=== PATIENT | female | born 1990 | race Caucasian/White ===

== ENCOUNTER → 2023-03-19 15:59 | Outpatient (BNVA) | payer MEDICAID, SELFPAY | PROVIDERS: PCP Registered Nurse; Visit Provider Registered Nurse | DX: Z34.90 Encounter for supervision of normal pregnancy, unspecified, unspecified trimester (principal) | CPT/HCPCS: 81025 ==

== ENCOUNTER 2023-04-27 14:28 | Emergency (ER) | payer MEDICAID, SELFPAY ==
--- NOTE | 2023-04-27 14:56 | ED_ITS ---
Documented by User: OCHOA Blas 04/28/23 07:09 HPI - General: Chief complaint: Vaginal Bleeding Stated complaint: Spotting, Approx 10 Weeks Pregenant Time Seen by Provider: 04/27/23 14:35 History of Present Illness: Patient is a with 1 miscarriage 32-year-old female that is currently 10 weeks and comes to the ED because of vaginal bleeding. Patient describes vaginal bleeding as spotting. Her spotting has been going on now for couple weeks and she says it comes and goes and is very mild. Yesterday the spotting got just slightly heavier and was consistent throughout the day. She passed a couple dime size clots. She denies any current heavy bleeding today and says she is still having some spotting and she is not bleeding through any pads. she has some occasional mild abdominal cramping. Denies any fevers, nausea, vomiting, dysuria or hematuria. Patient sees Dr. Meneses as her OB and says she has an appointment with him which will be her first appointment for this in May. Associated symptoms: Deny abdominal pain, dysuria, headache(s), nausea or vomiting Review of Systems Const: Denies: fever(s), chills or fatigue Eyes: Denies: change in vision or eye discomfort ENMT: Denies: throat pain, odynophagia, nasal discharge or nasal congestion Card: Denies: chest pain, palpitations, edema, swelling of feet/ankles, dyspnea on exertion or orthopnea Resp: Denies: dyspnea, productive cough or non-productive cough GI: Denies: abdominal pain, nausea, vomiting, diarrhea, constipation or hematochezia : Reports: vaginal bleeding; Denies: flank pain, dysuria or hematuria Musc: Denies: neck pain, back pain or extremity swelling Skin/Breast: Denies: rash or new lesions Neuro: Denies: headache(s), numbness in extremities or weakness in extremities PFSH ED PFSH: Family History Denies family history of Diabetes CAD (coronary artery disease) Chronic kidney disease (CKD) Lung disease Cancer Hypertension Social History Smoking and tobacco status: never smoked Alcohol intake: never Substance/Drug Use: never Adopted: No Caregiver/support person: No Lives independently: No Household members: spouse and children Marital status: service: No Current occupational status: unemployed Sexually active: Yes Do you think of yourself as: Straight/Heterosexual Current gender identity: Female Physical Exam Const: COMMON NORMALS: no acute distress, patient oriented x3, healthy appearing and alert GENERAL APPEARANCE: cooperative and comfortable HENMT: COMMON NORMALS: normocephalic HEAD & SCALP: normocephalic MOUTH: Normal oral and palatal mucosa present THROAT: posterior oropharynx normal and uvula midline Neck/C-Spine: COMMON NORMALS: supple GENERAL: Yes normal visual inspection Resp: COMMON NORMALS: normal respiratory effort, No retractions, No use of accessory muscles and clear to auscultation bilaterally AUSCULTATION: clear to auscultation bilaterally Cardio: COMMON NORMALS: regular rate, regular rhythm, S1 normal heart sound present, S2 normal heart sound present, No gallops present (Cardio), No clicks present (Cardio), No murmurs present (Cardio) and Peripheral pulses 2+ throughout RATE: regular rate RHYTHM: regular rhythm HEART SOUNDS: S1 normal heart sound present and S2 normal heart sound present PERIPHERAL PULSES: Peripheral pulses 2+ throughout GI: COMMON NORMALS: Normal to inspection, nondistended, normoactive bowel sounds present, Soft to palpation, non-tender and no masses PALPATION: Yes Soft to palpation : COMMON NORMALS: Yes no CVA tenderness BLADDER/KIDNEY EXAM: Yes no CVA tenderness Back/Pelvis: COMMON NORMALS: no CVA tenderness Extremity: COMMON NORMALS: normal to inspection Neuro: COMMON NORMALS: patient oriented x3 SENSORIUM/ORIENTATION: Yes alert GAIT: Yes Normal gait present Skin: GENERAL SKIN EXAM: dry skin Course Vital Signs: Vital signs: Vital Signs Temperature 98.2 F 04/27/23 14:57 Pulse Rate 75 04/27/23 17:55 Respiratory Rate 16 04/27/23 14:57 Blood Pressure 133/81 04/27/23 17:55 Pulse Oximetry 99 04/27/23 17:55 Oxygen Delivery Me thod Room Air 04/27/23 17:01 MDM - OB/Uterine Contractions Medical Decision Making Patient is a with 1 miscarriage 32-year-old female that is currently 10 weeks and comes to the ED because of vaginal bleeding. Patient describes vaginal bleeding as spotting. Her spotting has been going on now for couple weeks and she says it comes and goes and is very mild. Yesterday the spotting got just slightly heavier and was consistent throughout the day. She passed a couple dime size clots. She denies any current heavy bleeding today and says she is still having some spotting and she is not bleeding through any pads. she has some occasional mild abdominal cramping. Denies any fevers, nausea, vomiting, dysuria or hematuria. Patient sees Dr. Meneses as her OB and says she has an appointment with him which will be her first appointment for this in May. Vitals are stable. Patient appears healthy nontoxic in no acute distress or pain. Rest of exam is benign. CBC and CMP are unremarkable. hCG quant of 108,950. Rh+, OB ultrasound showed a single live intrauterine with estimated gestation of 10 weeks and 6 days. It also noted a 3.4 cm simple right ovarian cyst. No other acute finding noted. UA is pending. Patient case was signed over to Ester Gee PA-C at shift change 5 PM. She will be taking over care of patient and dispo plan. Lab Data I reviewed the patient's lab results. 04/27/23 14:45 04/27/23 14:45 Radiology Impressions Obstetrics Ultrasound 04/27/23 15:14 IMPRESSION: 1. Single live intrauterine gestation with estimated ultrasound gestational age of 10 weeks 6 days for an TERE of 11/17/2023. 2. 3.4 cm simple right ovarian cyst. Laboratory Results WBC 10.1 10^3/uL (4.0-10.0) H 04/27/23 14:45 RBC 4.49 10^6/uL (4.1-5.3) 04/27/23 14:45 Hgb 12.1 g/dL (11.5-15.3) 04/27/23 14:45 Hct 38.2 % (37.0-47.0) 04/27/23 14:45 MCV 85.1 fl (81-99) 04/27/23 14:45 MCH 26.9 pg (28.0-34.0) L 04/27/23 14:45 MCHC 31.7 g/dL (30.0-36.0) 04/27/23 14:45 RDW 15.6 % (12.1-15.1) H 04/27/23 14:45 Plt Count 389 10^3/cmm (130-400) 04/27/23 14:45 MPV 10.4 fL (7.4-10.4) 04/27/23 14:45 Neut % (Auto) 75.3 % 04/27/23 14:45 Lymph % (Auto) 18.8 % 04/27/23 14:45 Mifflin % (Auto) 4.5 % 04/27/23 14:45 Eos % (Auto) 0.6 % 04/27/23 14:45 Baso % (Auto) 0.4 % 04/27/23 14:45 Neut # (Auto) 7.60 10^3/uL (1.8-7.7) 04/27/23 14:45 Lymph # (Auto) 1.9 10^3/uL (0.8-4.8) 04/27/23 14:45 Mifflin # (Auto) 0.5 10^3/uL (0.2-0.9) 04/27/23 14:45 Eos # (Auto) 0.1 10^3/uL (0.0-0.8) 04/27/23 14:45 Baso # (Auto) 0.0 10^3/uL (0.0-0.1) 04/27/23 14:45 Nucleated RBC % (auto) 0 % 04/27/23 14:45 Nucleated RBCs # 0.0 /100WBC 04/27/23 14:45 Sodium 135 mmol/L (136-145) L 04/27/23 14:45 Potassium 4.0 mmol/L (3.5-5.1) 04/27/23 14:45 Chloride 102 mmol/L (98-107) 04/27/23 14:45 Carbon Dioxide 23 mmol/L (22-29) 04/27/23 14:45 Anion Gap 14.0 (5-19) 04/27/23 14:45 BUN 6 mg/dL (6-20) 04/27/23 14:45 Creatinine 0.5 mg/dL (0.5-0.9) 04/27/23 14:45 GFR Calculation 141.2 mL/min (90-130) H 04/27/23 14:45 Glucose 84 mg/dL (65-115) 04/27/23 14:45 Calculated Osmolality 277 mOsm/kg (285-295) L 04/27/23 14:45 Calcium 8.8 mg/dL (8.5-10.5) 04/27/23 14:45 Total Bilirubin 0.2 mg/dL (0.15-1.2) 04/27/23 14:45 AST 12 U/L (0-32) 04/27/23 14:45 ALT 12 U/L (0-33) 04/27/23 14:45 Alkaline Phosphatase 113 U/L (35-105) H 04/27/23 14:45 Total Protein 7.4 g/dL (6.6-8.7) 04/27/23 14:45 Albumin 3.7 g/dL (3.5-5.2) 04/27/23 14:45 Globulin 3.7 g/dL (1.3-4.6) 04/27/23 14:45 Ser , Semi-Qnt 583823.00 mIU/mL 04/27/23 14:45 Urine Color Yellow (Yellow) 04/27/23 16:53 Urine Appearance Sl hazy (CLEAR) A 04/27/23 16:53 Urine pH 5 (5-7) 04/27/23 16:53 Ur Specific Axson 1.020 (1.005-1.030) 04/27/23 16:53 Urine Protein Neg (Negative) 04/27/23 16:53 Urine Glucose (UA) Norm (Normal) 04/27/23 16:53 Urine Ketones Negative (Negative) 04/27/23 16:53 Urine Blood 3+ (Negative) H 04/27/23 16:53 Urine Nitrate Negative (Negative) 04/27/23 16:53 Urine Bilirubin Neg (Negative) 04/27/23 16:53 Urine Urobilinogen Norm mg/dL (Negative) 04/27/23 16:53 Ur Leukocyte Esterase 2+ (Negative) H 04/27/23 16:53 Urine RBC 5-10 /hpf (0-2) H 04/27/23 16:53 Urine WBC 10-15 /hpf (0-5) H 04/27/23 16:53 Ur Squamous Epith Cells 5-10 /hpf (0-5) H 04/27/23 16:53 Amorphous Sediment Not Reportable 04/27/23 16:53 Urine Bacteria 2+ /hpf (NONE) H 04/27/23 16:53 Urine Mucus 2+ /hpf 04/27/23 16:53 Blood Type O Positive 04/27/23 14:45 Rho(D) Type Positive 04/27/23 14:45 Discharge Plan Discharge Patient Disposition: Home Clinical Impression: Vaginal bleeding during , UTI (urinary tract infection) Condition: Stable Prescriptions: New cefdinir 300 mg capsule 300 mg PO BID 10 Days Qty: 20 0RF No Action DHA 200 mg Capsule 200 mg PO DAILY calcium carbonate [Tums 500] 500 mg calcium (1,250 mg) Tablet,Chewable 500 mg PO DAILY PRN (Reason: UNKNOWN) Discharge Orders: Discharge ED (Routine); Ordered 04/27/23 Ordered By: Ester Gee Referrals: Randy Landis FNP [Primary Care Provider] - Discharge Diet: Usual diet Discharge Activity: Increase activity as tolerated Patient Instructions: Non-Threatening First Trimester Vaginal Bleed (ED), Urinary Tract Infection in (ED) Activity Restrictions/Additional Instructions: Ultrasound reveals an intrauterine measuring 10 weeks and 6 days with good heartbeat. Other lab work is generally unremarkable. Urinalysis is concerning for urinary tract infection so we will start treatment with antibiotics. They are going to culture your urine to perform a culture and sensitivity to make sure the antibiotic you are on will cover for the infection appropriately however, for any reason we need to change the antibiotic she will be notified. As with anyone with bleeding during , we do recommend a recheck of your hormone levels in 48 hours. I do recommend reaching out to your PROGRESS CLERK to make them aware of your evaluation here in the ER as they can often accommodate repeat lab testing however, if they are unable to, we welcome you to return to the emergency department in 48 hours for this recheck. If for any reason your symptoms change including increase in vaginal bleeding, w orsening abdominal pains or cramps, fever, or vomiting without ability to tolerate fluids you need to be seen and reevaluated back here in the emergency department. Sign Out Sign Out Data: Patient Sign Out occurred on 04/27/23 at 17:10. Patient's care was discussed, and care was transferred from to OCHOA Myles. Coding Level of Care Code ED General Partner for Chg Fwd Documented by User: OCHOA Myles 04/27/23 18:47 HPI - General: Chief complaint: Vaginal Bleeding Stated complaint: Spotting, Approx 10 Weeks Pregenant Time Seen by Provider: 04/27/23 14:35 PFSH ED PFSH: Family History Denies family history of Diabetes CAD (coronary artery disease) Chronic kidney disease (CKD) Lung disease Cancer Hypertension Social History Smoking and tobacco status: never smoked Alcohol intake: never Substance/Drug Use: never Adopted: No Caregiver/support person: No Lives independently: No Household members: spouse and children Marital status: service: No Current occupational status: unemployed Sexually active: Yes Do you think of yourself as: Straight/Heterosexual Current gender identity: Female Course Vital Signs: Vital signs: Vital Signs Temperature 98.2 F 04/27/23 14:57 Pulse Rate 75 04/27/23 17:55 Respiratory Rate 16 04/27/23 14:57 Blood Pressure 133/81 04/27/23 17:55 Pulse Oximetry 99 04/27/23 17:55 Oxygen Delivery Me thod Room Air 04/27/23 17:01 MDM - OB/Uterine Contractions Medical Decision Making Patient is a with 1 miscarriage 32-year-old female that is currently 10 weeks and comes to the ED because of vaginal bleeding. Patient describes vaginal bleeding as spotting. Her spotting has been going on now for couple weeks and she says it comes and goes and is very mild. Yesterday the spotting got just slightly heavier and was consistent throughout the day. She passed a couple dime size clots. She denies any current heavy bleeding today and says she is still having some spotting and she is not bleeding through any pads. she has some occasional mild abdominal cramping. Denies any fevers, nausea, vomiting, dysuria or hematuria. Patient sees Dr. Meneses as her OB and says she has an appointment with him which will be her first appointment for this in May. Vitals are stable. Patient appears healthy nontoxic in no acute distress or pain. Rest of exam is benign. CBC and CMP are unremarkable. hCG quant of 108,950. Rh+, OB ultrasound showed a single live intrauterine with estimated gestation of 10 weeks and 6 days. It also noted a 3.4 cm simple right ovarian cyst. No other acute finding noted. UA is pending. Patient case was signed over to Ester Gee PA-C at shift change 5 PM. She will be taking over care of patient and dispo plan. Ester Gee PA-C: Transfer of care at 1700. Patient ultrasound shows single intrauterine measuring 10 weeks and 6 days. heart tones heard. Patient's urinalysis shows 2+ bacteria and leukocyte Estrace with minimal contamination urine. For that reason I would like to treat with antibiotics for urinary tract infection and, appears that urine is being cultured. Explained to the patient that over the next 24 to 48 hours we will have culture and sensitivity results and will change antibiotic treatment if necessary at that time. I encouraged her to have a follow-up appointment with her primary care doctor for an hCG recheck in 48 hours. If she is unable to be accommodated by her PROGRESS CLERK she can return here to the emergency department to have this rechecked-especially if she is having any continued spotting. Went over return precautions for change or worsening of abdominal pains, increased or worsening bleeding, fevers, or vomiting without ability to tolerate fluids. Patient verbalized her understanding and agreement to treatment plan. Differential Diagnosis Likely premature labor and pre-eclampsia (Bleeding in early , subchorionic, miscarriage, UTI) Lab Data 04/27/23 14:45 04/27/23 14:45 Radiology Impressions Obstetrics Ultrasound 04/27/23 15:14 IMPRESSION: 1. Single live intrauterine gestation with estimated ultrasound gestational age of 10 weeks 6 days for an TERE of 11/17/2023. 2. 3.4 cm simple right ovarian cyst. Laboratory Results WBC 10.1 10^3/uL (4.0-10.0) H 04/27/23 14:45 RBC 4.49 10^6/uL (4.1-5.3) 04/27/23 14:45 Hgb 12.1 g/dL (11.5-15.3) 04/27/23 14:45 Hct 38.2 % (37.0-47.0) 04/27/23 14:45 MCV 85.1 fl (81-99) 04/27/23 14:45 MCH 26.9 pg (28.0-34.0) L 04/27/23 14:45 MCHC 31.7 g/dL (30.0-36.0) 04/27/23 14:45 RDW 15.6 % (12.1-15.1) H 04/27/23 14:45 Plt Count 389 10^3/cmm (130-400) 04/27/23 14:45 MPV 10.4 fL (7.4-10.4) 04/27/23 14:45 Neut % (Auto) 75.3 % 04/27/23 14:45 Lymph % (Auto) 18.8 % 04/27/23 14:45 Mifflin % (Auto) 4.5 % 04/27/23 14:45 Eos % (Auto) 0.6 % 04/27/23 14:45 Baso % (Auto) 0.4 % 04/27/23 14:45 Neut # (Auto) 7.60 10^3/uL (1.8-7.7) 04/27/23 14:45 Lymph # (Auto) 1.9 10^3/uL (0.8-4.8) 04/27/23 14:45 Mifflin # (Auto) 0.5 10^3/uL (0.2-0.9) 04/27/23 14:45 Eos # (Auto) 0.1 10^3/uL (0.0-0.8) 04/27/23 14:45 Baso # (Auto) 0.0 10^3/uL (0.0-0.1) 04/27/23 14:45 Nucleated RBC % (auto) 0 % 04/27/23 14:45 Nucleated RBCs # 0.0 /100WBC 04/27/23 14:45 Sodium 135 mmol/L (136-145) L 04/27/23 14:45 Potassium 4.0 mmol/L (3.5-5.1) 04/27/23 14:45 Chloride 102 mmol/L (98-107) 04/27/23 14:45 Carbon Dioxide 23 mmol/L (22-29) 04/27/23 14:45 Anion Gap 14.0 (5-19) 04/27/23 14:45 BUN 6 mg/dL (6-20) 04/27/23 14:45 Creatinine 0.5 mg/dL (0.5-0.9) 04/27/23 14:45 GFR Calculation 141.2 mL/min (90-130) H 04/27/23 14:45 Glucose 84 mg/dL (65-115) 04/27/23 14:45 Calculated Osmolality 277 mOsm/kg (285-295) L 04/27/23 14:45 Calcium 8.8 mg/dL (8.5-10.5) 04/27/23 14:45 Total Bilirubin 0.2 mg/dL (0.15-1.2) 04/27/23 14:45 AST 12 U/L (0-32) 04/27/23 14:45 ALT 12 U/L (0-33) 04/27/23 14:45 Alkaline Phosphatase 113 U/L (35-105) H 04/27/23 14:45 Total Protein 7.4 g/dL (6.6-8.7) 04/27/23 14:45 Albumin 3.7 g/dL (3.5-5.2) 04/27/23 14:45 Globulin 3.7 g/dL (1.3-4.6) 04/27/23 14:45 Ser , Semi-Qnt 143587.00 mIU/mL 04/27/23 14:45 Urine Color Yellow (Yellow) 04/27/23 16:53 Urine Appearance Sl hazy (CLEAR) A 04/27/23 16:53 Urine pH 5 (5-7) 04/27/23 16:53 Ur Specific Axson 1.020 (1.005-1.030) 04/27/23 16:53 Urine Protein Neg (Negative) 04/27/23 16:53 Urine Glucose (UA) Norm (Normal) 04/27/23 16:53 Urine Ketones Negative (Negative) 04/27/23 16:53 Urine Blood 3+ (Negative) H 04/27/23 16:53 Urine Nitrate Negative (Negative) 04/27/23 16:53 Urine Bilirubin Neg (Negative) 04/27/23 16:53 Urine Urobilinogen Norm mg/dL (Negative) 04/27/23 16:53 Ur Leukocyte Esterase 2+ (Negative) H 04/27/23 16:53 Urine RBC 5-10 /hpf (0-2) H 04/27/23 16:53 Urine WBC 10-15 /hpf (0-5) H 04/27/23 16:53 Ur Squamous Epith Cells 5-10 /hpf (0-5) H 04/27/23 16:53 Amorphous Sediment Not Reportable 04/27/23 16:53 Urine Bacteria 2+ /hpf (NONE) H 04/27/23 16:53 Urine Mucus 2+ /hpf 04/27/23 16:53 Blood Type O Positive 04/27/23 14:45 Rho(D) Type Positive 04/27/23 14:45 Discharge Plan Discharge Patient Disposition: Home Clinical Impression: Vaginal bleeding during , UTI (urinary tract infection) Condition: Stable Prescriptions: New cefdinir 300 mg capsule 300 mg PO BID 10 Days Qty: 20 0RF No Action DHA 200 mg Capsule 200 mg PO DAILY calcium carbonate [Tums 500] 500 mg calcium (1,250 mg) Tablet,Chewable 500 mg PO DAILY PRN (Reason: UNKNOWN) Discharge Orders: Discharge ED (Routine); Ordered 04/27/23 Ordered By: Ester Gee Referrals: Randy Landis, [employer] PA[employer] COORDINATOR [Primary Care Provider] - Discharge Diet: Usual diet Discharge Activity: Increase activity as tolerated Patient Instructions: Non-Threatening First Trimester Vaginal Bleed (ED), Urinary Tract Infection in (ED) Activity Restrictions/Additional Instructions: Ultrasound reveals an intrauterine measuring 10 weeks and 6 days with good heartbeat. Other lab work is generally unremarkable. Urinalysis is concerning for urinary tract infection so we will start treatment with antibiotics. They are going to culture your urine to perform a culture and sensitivity to make sure the antibiotic you are on will cover for the infection appropriately however, for any reason we need to change the antibiotic she will be notified. As with anyone with bleeding during , we do recommend a recheck of your hormone levels in 48 hours. I do recommend reaching out to your PROGRESS CLERK to make them aware of your evaluation here in the ER as they can often accommodate repeat lab testing however, if they are unable to, we welcome you to return to the emergency department in 48 hours for this recheck. If for any reason your symptoms change including increase in vaginal bleeding, worsening abdominal pains or cramps, fever, or vomiting without ability to tolerate fluids you need to be seen and reevaluated back here in the emergency department. Sign Out Sign Out Data: Patient Sign Out occurred on 04/27/23 at 17:10. Patient's care was discussed, and care was transferred from to OCHOA Myles. Coding Level of Care Code ED General Partner for Nguyễn Weldon
[2023-04-27 14:57] VITALS: BP 126/85; PULSE 84; RESP 16; TEMP 36.8; O2SAT 99
[2023-04-27 15:00] LABS: Basophils % 0.4 %; Eosinophils # 0.1 10^3/uL (0.0-0.8); Eosinophils % 0.6 %; Hematocrit 38.2 % (37.0-47.0); Hemoglobin 12.1 g/dL (11.5-15.3); Lymphocytes # 1.9 10^3/uL (0.8-4.8); Lymphocytes % 18.8 %; Mean Corpuscular HGB Conc 31.7 g/dL (30.0-36.0); Mean Corpuscular Hemoglobin 26.9 pg (28.0-34.0); Mean Corpuscular Volume 85.1 fl (81-99); Mean Platelet Volume 10.4 fL (7.4-10.4); Monocytes # 0.5 10^3/uL (0.2-0.9); Monocytes % 4.5 %; Neutrophils % 75.3 %; Nucleated Red Blood Cells % 0 %; Platelet Count 389 10^3/cmm (130-400); Red Blood Count 4.49 10^6/uL (4.1-5.3); Red Cell Distribution Width 15.6 % (12.1-15.1); White Blood Count 10.1 10^3/uL (4.0-10.0)
--- NOTE | 2023-04-27 15:09 | PC.PHAR ---
PT STATES SHE DOES TAKE AN OCCASIONAL TUMS ANTACID.
--- NOTE | 2023-04-27 15:14 | USR_ITS ---
PROCEDURE INFORMATION: Exam: US , Limited Exam date and time: 04/27/2023 3:31 PM Age: 32 years old Clinical indication: Lmp or gestational age (in weeks): Spotting; ; Additional info: 10 weeks -spotting and passing small clots TECHNIQUE: Imaging protocol: Real-time ultrasound of the maternal uterus with image documentation. Exam focused on the clinical indication. COMPARISON: No relevant prior studies available. FINDINGS: Gestation: Single live intrauterine gestation with crown-rump length measuring 4.0 cm for an estimated gestational age of 10 weeks 6 days +/-6 days yielding TERE of 11/17/2023. heart rate measures 189 bpm on M-mode. MATERNAL: Cervix: Small nabothian cyst at the cervix. Maternal uterus otherwise unremarkable. Right ovary/adnexa: Right ovary measures 5.2 x 4.1 by 5.1 cm for a calculated volume of 55.8 mL. Simple circumscribed rounded avascular anechoic simple right ovarian cyst measures 3.4 cm and shows increased through transmission. Ovarian vascularity demonstrated on color Doppler with arterial spectral waveform documented. No extra ovarian adnexal mass. US/US OB limited [id number] IMPRESSION: 1. Single live intrauterine gestation with estimated ultrasound gestational age of 10 weeks 6 days for an TERE of 11/17/2023. 2. 3.4 cm simple right ovarian cyst.
[2023-04-27 15:35] LABS: Alanine Aminotransferase 12 U/L (0-33); Albumin Level 3.7 g/dL (3.5-5.2); Alkaline Phosphatase 113 U/L (35-105); Aspartate Amino Transferase 12 U/L (0-32); Blood Urea Nitrogen 6 mg/dL (6-20); Calcium 8.8 mg/dL (8.5-10.5); Carbon Dioxide 23 mmol/L (22-29); Chloride 102 mmol/L (98-107); Globulin 3.7 g/dL (1.3-4.6); Glomerular Filtration Rate 141.2 mL/min (90-130); Glucose 84 mg/dL (65-115); Osmolality Calculated 277 mOsm/kg (285-295); Sodium 135 mmol/L (136-145); Total Bilirubin 0.2 mg/dL (0.15-1.2); Total Protein 7.4 g/dL (6.6-8.7)
[2023-04-27 15:38] VITALS: BP 118/72; PULSE 80; O2SAT 98
[2023-04-27 17:01] VITALS: BP 121/81; PULSE 73; O2SAT 99
[2023-04-27 17:26] LABS: Add Urine Microscopic? YES; Bilirubin Urine Neg (Negative); Blood Urine 3+ (Negative); Glucose Urine UA Norm (Normal); Ketones Urine Negative (Negative); Leukocyte Esterase Urine 2+ (Negative); Nitrate Urine Negative (Negative); Protein Urine Neg (Negative); Urine Appearance SL Hazy (CLEAR); Urine Color Yellow (Yellow); Urobilinogen Urine Norm (Negative); pH Urine 5 (5-7)
[2023-04-27 17:29] LABS: Add Urine Culture? Yes; Bacteria Urine 2+ /hpf; Mucus Urine 2+ /hpf
[2023-04-27 17:55] VITALS: BP 133/81; PULSE 75; O2SAT 99
== END 2023-04-27 17:57 | disposition home or self-care (01) ==
PROVIDERS: Physician Assistant; Emergency Provider Physician Assistant; PCP Registered Nurse
DX: O46.91 Antepartum hemorrhage, unspecified, first trimester (principal); O23.41 Unspecified infection of urinary tract in pregnancy, first trimester; N39.0 Urinary tract infection, site not specified; Z3A.10 10 weeks gestation of pregnancy; O34.81 Maternal care for other abnormalities of pelvic organs, first trimester; N83.291 Other ovarian cyst, right side
CPT/HCPCS: 36415; 76815; 80053; 81001; 84702; 85025; 86900; 87086; 99284

== ENCOUNTER 2023-07-12 17:30 | Outpatient (CLI) | payer MEDICAID, SELFPAY ==
[2023-07-12] VITALS (22 sets, daily range): BP systolic 115–145; BP diastolic 55–90; PULSE 55–100; RESP 16; O2SAT 97–100; BMI 30.7
--- NOTE | 2023-07-12 17:57 | USR_ITS ---
PROCEDURE INFORMATION: Exam: US , Limited Exam date and time: 07/12/2023 6:20 PM Age: 32 years old Clinical indication: complicated by abdominal or pelvic pain; Other: Contractions; Gestational age or lmp: 21w; ; Additional info: Abdominal pain LABS AND CLINICAL REPORTS: Last menstrual period start date: 02/13/2023 Gestational age (Established): 21 w 2 d Estimated due date (Established): 11/20/2023 TECHNIQUE: Imaging protocol: Real-time ultrasound of the maternal uterus with image documentation. Exam focused on the clinical indication. COMPARISON: US OB >= 14 weeks fetus [id number] 07/10/2023 8:41 AM FINDINGS: Gestation: Single viable intrauterine in a breech position at the present time. heart rate: 147 bpm Placenta: Placenta is located anteriorly. No evidence of placenta previa. Amniotic fluid: Amniotic fluid volume appears adequate. MATERNAL: Cervix: Closed. Cervical length measures 3.16 cm. US/US OB limited [id number] IMPRESSION: Single viable 2nd trimester intrauterine in a breech position at the current time.
[2023-07-12] MEDS: terbutaline 1 mg/mL INJ 0.25 MG SUBCUT (18:07)
[2023-07-12] MEDS: HYDROcodone-acetaminophen 5-325 mg Tablet 1 TAB PO (18:08)
[2023-07-12] MEDS: lactated ringers 1,000 ML 999 ML IV (18:14)
[2023-07-12 19:33] LABS: Bilirubin Urine Neg (Negative); Blood Urine 3+ (Negative); Calcium Oxalate Crystals Urine 0-4 /hpf; Glucose Urine UA Norm (Normal); Ketones Urine 2+ (Negative); Leukocyte Esterase Urine 1+ (Negative); Nitrate Urine Negative (Negative); Protein Urine 1+ (Negative); RBC Urine >100 /hpf (0-2); Specific Gravity, Urine 1.015 (1.005-1.030); Squamous Epithelial Cell Urine 0-4 /hpf (0-5); Urine Appearance Cloudy (CLEAR); Urine Color Amber (Yellow); Urobilinogen Urine Neg (Negative); WBC Urine 0-4 /hpf (0-5); pH Urine 6 (5-7)
[2023-07-12 19:34] LABS: Add Urine Culture? Yes
== END 2023-07-12 20:03 | disposition home or self-care (01) ==
LOC: OPOB 17:31 → OBGYN 17:32
PROVIDERS: PCP Registered Nurse; Visit Provider Family Medicine
DX: O21.9 Vomiting of pregnancy, unspecified (principal); Z3A.21 21 weeks gestation of pregnancy; R52 Pain, unspecified
CPT/HCPCS: 36415; 76815; 81001; 87086; 96372; 99211; J3105; J7120

== ENCOUNTER 2023-07-14 15:20 | Outpatient (CLI) | payer MEDICAID, SELFPAY ==
[2023-07-14 15:27] VITALS: RESP 16; BMI 29.7
[2023-07-14 15:32] VITALS: BP 119/66; PULSE 73
[2023-07-14 15:50] VITALS: BP 112/63; PULSE 82
[2023-07-14 16:16] VITALS: BP 112/63; PULSE 82; RESP 15; TEMP 36.8
== END 2023-07-14 16:18 | disposition home or self-care (01) ==
LOC: OPOB 15:26 → OBGYN 15:27
PROVIDERS: PCP Registered Nurse; Visit Provider Family Medicine
DX: O21.9 Vomiting of pregnancy, unspecified (principal); Z3A.00 Weeks of gestation of pregnancy not specified
CPT/HCPCS: 99211

== ENCOUNTER 2023-07-14 16:10 | Emergency (ER) | payer MEDICAID, SELFPAY ==
[2023-07-14 16:13] VITALS: BP 133/79; PULSE 77; RESP 17; TEMP 36.7; O2SAT 97; BMI 29.8
[2023-07-14 16:23] VITALS: BP 133/76; PULSE 83; RESP 18; O2SAT 96
--- NOTE | 2023-07-14 16:34 | USR_ITS ---
PROCEDURE INFORMATION: Exam: US Retroperitoneal; Complete; Kidneys and Bladder Exam date and time: 07/14/2023 4:50 PM Age: 32 years old Clinical indication: Abdominal pain; ; Additional info: Rightl flank pain TECHNIQUE: Imaging protocol: Real-time ultrasound of the retroperitoneum with image documentation. Complete exam focused on the kidneys and bladder. COMPARISON: US OB limited [id number] 07/12/2023 6:20 PM FINDINGS: Right kidney: Measures 9.3 cm in length. No shadowing hyperechoic foci to suggest stones. Mild pelvicaliectasis. Left kidney: Measures 10.8 cm in length. No stones. No hydronephrosis. Aorta: Interrogated abdominal aorta shows normal caliber. Uterus: Partially visualized uterine gestation. Urinary bladder: Underdistended, limiting evaluation. US/US renal BI* [id number] IMPRESSION: Mild right hydronephrosis.
--- NOTE | 2023-07-14 16:35 | W.ED.ABDPA2 ---
HPI - Abdominal Pain General: Chief Complaint: Abdominal Pain Stated Complaint: severe back pain Time Seen by Provider: 07/14/23 16:16 Source: patient and family Mode of arrival: ambulatory Limitations: no limitations History of Present Illness: This patient comes to the emergency department, by her spouse. She comes because of persistent and perhaps worsening right flank and right lateral abdominal pain. She states she is also had difficulty with keeping fluids down. She states she attempted to drink fluids and then vomits them shortly thereafter. She states the pain is waxing and waning in the same location and has been for the past 2 to 3 days. She denies any back injuries. She denies any known fevers. She is approximately 21 weeks was seen by OB last Saturday and had a urinalysis at that time and was told she may in fact have a kidney stone. She has had no prior history of kidney stones. She had a prior cholecystectomy. She has had no vaginal bleeding and she is feeling good movement. She has had no other issues during this . She is a G4 para 3 MD elicited complaint: flank pain Pain Consistency: intermittent and colicky Location: R flank Associated Symptoms: Reports nausea and vomiting; Denies chills, diarrhea and fever(s) Review of Systems Const: Denies: fever(s) or chills Eyes: Denies: change in vision ENMT: Denies: throat pain, odynophagia, nasal discharge or nasal congestion Card: Denies: chest pain, palpitations or lightheadedness Resp: Denies: dyspnea, productive cough or non-productive cough GI: Reports: abdominal pain, nausea and vomiting; Denies: diarrhea : Reports: flank pain, urinary frequency and urinary hesitancy Musc: Reports: back pain; Denies: neck pain, extremity pain or extremity swelling Skin/Breast: Denies: rash or pruritus Neuro: Denies: headache(s), numbness in extremities or weakness in extremities PFSH ED PFSH: Family History Denies family history of Diabetes CAD (coronary artery disease) Chronic kidney disease (CKD) Lung disease Cancer Hypertension Social History Smoking and tobacco status: never smoked Alcohol intake: never Substance/Drug Use: never Adopted: No Caregiver/support person: No Lives independently: No Household members: spouse and children Marital status: service: No Current occupational status: unemployed Sexually active: Yes Do you think of yourself as: Straight/Heterosexual Current gender identity: Female Physical Exam Narrative: EXAM NARRATIVE: She is alert and cooperative answers questions in an appropriate goal-directed fashion. Const: COMMON NORMALS: no acute distress, average body habitus, patient oriented x3 and alert GENERAL APPEARANCE: cooperative HENMT: COMMON NORMALS: normocephalic, Normal nasal mucous membranes and turbinates present, moist oral mucous membranes and oropharynx normal HEAD & SCALP: normocephalic NOSE: Normal nasal mucous membranes and turbinates present Eye: COMMON NORMALS: Equal, round and reactive pupils present, EOMs intact bilaterally and conjunctivae normal CONJUNCTIVA: Yes conjunctivae normal PUPIL: Yes Equal, round and reactive pupils present Neck/C-Spine: COMMON NORMALS: full ROM and no lymphadenopathy Chest: COMMONS NORMALS: normal inspection of the chest Resp: COMMON NORMALS: normal respiratory effort, No retractions, No use of accessory muscles and clear to auscultation bilaterally AUSCULTATION: clear to auscultation bilaterally Cardio: COMMON NORMALS: regular rate, regular rhythm, No murmurs present (Cardio) and Peripheral pulses 2+ throughout RATE: regular rate RHYTHM: regular rhythm PERIPHERAL PULSES: Peripheral pulses 2+ throughout GI: COMMON NORMALS: Normal to inspection, nondistended, normoactive bowel sounds present PALPATION: Yes Tenderness to palpation present (GI), No Guarding due to palpation present (GI) and No Rigid due to palpation GI image (female): 1. Area of tenderness : BLADDER/KIDNEY EXAM: Yes CVA tenderness on the right Back/Pelvis: COMMON NORMALS: thoracic and lumbar spine normal to inspection, thoraco-lumbar ROM normal and straight leg raise negative bilaterally GENERAL BACK: Yes CVA tenderness SACROILIAC JOINTS: Yes SI joints normal BACK IMAGE (FEMALE): 1. Tenderness Extremity: COMMON NORMALS: normal to inspection, full ROM, capillary refill normal and no calf tenderness Neuro: COMMON NORMALS: patient oriented x3, moves all extremities, no focal motor deficits and no sensory deficits noted SENSORIUM/ORIENTATION: Yes alert Psych: COMMON NORMALS: mental status grossly normal Skin: COMMON NORMALS: no rashes or lesions noted GENERAL SKIN EXAM: no rashes or lesions noted Course Reevaluation(s): Reevaluation #1: Patient states she is feeling much better. She is able to tolerate some p.o. intake and has no significant flank pain at this time. We discussed findings, their limitations and implications and her follow-up plan and return precautions Time: 19:05 Vital Signs: Vital signs: Vital Signs Temperature 98.1 F 07/14/23 16:13 Pulse Rate 76 07/14/23 16:47 Respiratory Rate 19 H 07/14/23 16:47 Blood Pressure 126/84 07/14/23 16:47 Pulse Oximetry 95 07/14/23 16:47 Oxygen Delivery Me thod Room Air 07/14/23 16:47 MDM - Abdominal Pain Medical Decision Making This patient at 21 weeks gestation who has been having some right flank pain off and on for the past few days. She was seen on a Labor and Delivery a couple days ago and had a urinalysis which showed hematuria but no other significant sediment findings. Feel assessment was reassuring at that time. She continues to have symptoms with some vomiting and intolerance of oral intake over the past 24 hours. No fevers documented. She has good movement and no vaginal bleeding. Her assessment revealed her to be relatively comfortable. Her abdomen examination reveals to be gravid without any uterine tenderness. She did have some mild CVA tenderness on the right. No peritoneal signs or guarding. Evaluation included a urinalysis laboratories as well as IV hydration and a renal ultrasound. Renal ultrasound did show mild hydronephrosis with out any evidence of proximal ureter dilatation or [place] dilatation etc. No evidence of extra renal masses. Her urinalysis did have markedly less red blood cells than noted 2 days ago but did have some trace leukocyte Estrace as well as 5-10 white cells. She did have an elevation in her white blood count but this is nonspecific particularly in . Remainder of her chemistries were reassuring. She was given the benefit of hydration in the emergency department as well as a loading dose of Ancef. She had clinical improvement in subjective improvement no evidence to suggest sepsis etc. While its not definitive that she has a ureteral stone certainly is prudent to treat her potential infection pending culture. We have discussed her current findings there implications need for return precautions as well as she has OB follow-up in 3 days. She voiced understanding and was appreciative of care. Lab Data I reviewed the patient's lab results. 07/14/23 16:46 07/14/23 16:46 Labs/Radiology: Radiology Impressions Renal Ultrasound 07/14/23 16:34 IMPRESSION: Mild right hydronephrosis. Laboratory Results WBC 17.88 10^3/uL (3.29-11.43) H 07/14/23 16:46 RBC 4.01 10^6/uL (3.85-5.65) 07/14/23 16:46 Hgb 11.60 g/dL (11.27-16.99) 07/14/23 16:46 Hct 35.5 % (36-47) L 07/14/23 16:46 MCV 88.5 fl (85-98) 07/14/23 16:46 MCH 28.9 pg (27-33) 07/14/23 16:46 MCHC 32.7 g/dL (30-55) 07/14/23 16:46 RDW 14.4 % (12.1-15.1) 07/14/23 16:46 Plt Count 356 10^3/cmm (157-399) 07/14/23 16:46 MPV 10.9 fL (7.4-10.4) H 07/14/23 16:46 Neut % (Auto) 90.1 % 07/14/23 16:46 Lymph % (Auto) 7.0 % 07/14/23 16:46 [place] % (Auto) 1.9 % 07/14/23 16:46 Eos % (Auto) 0.1 % 07/14/23 16:46 Baso % (Auto) 0.2 % 07/14/23 16:46 Neut # (Auto) 16.12 10^3/uL (1.8-7.7) H 07/14/23 16:46 Lymph # (Auto) 1.3 10^3/uL (0.8-4.8) 07/14/23 16:46 Garvin # (Auto) 0.3 10^3/uL (0.2-0.9) 07/14/23 16:46 Eos # (Auto) 0.0 10^3/uL (0.0-0.8) 07/14/23 16:46 Baso # (Auto) 0.0 10^3/uL (0.0-0.1) 07/14/23 16:46 Nucleated RBC % (auto) 0 % 07/14/23 16:46 Nucleated RBCs # 0.0 /100WBC 07/14/23 16:46 Sodium 136 mmol/L (136-145) 07/14/23 16:46 Potassium 4.6 mmol/L (3.5-5.1) 07/14/23 16:46 Chloride 104 mmol/L (98-107) 07/14/23 16:46 Carbon Dioxide 22 mmol/L (22-29) 07/14/23 16:46 Anion Gap 14.6 (5-19) 07/14/23 16:46 BUN 5 mg/dL (6-20) L 07/14/23 16:46 Creatinine 0.5 mg/dL (0.5-0.9) 07/14/23 16:46 GFR Calculation 141.2 mL/min (90-130) H 07/14/23 16:46 Glucose 119 mg/dL (65-115) H 07/14/23 16:46 Calculated Osmolality 280 mOsm/kg (285-295) L 07/14/23 16:46 Calcium 9.0 mg/dL (8.5-10.5) 07/14/23 16:46 Urine Color Yellow (Yellow) 07/14/23 17:39 Urine Appearance Clear (CLEAR) 07/14/23 17:39 Urine pH 6.5 (5-7) 07/14/23 17:39 Ur Specific [place] 1.005 (1.005-1.030) 07/14/23 17:39 Urine Protein Neg (Negative) 07/14/23 17:39 Urine Glucose (UA) Norm (Normal) 07/14/23 17:39 Urine Ketones 2+ (Negative) H 07/14/23 17:39 Urine Blood 2+ (Negative) H 07/14/23 17:39 Urine Nitrate Negative (Negative) 07/14/23 17:39 Urine Bilirubin Neg (Negative) 07/14/23 17:39 Urine Urobilinogen Norm mg/dL (Negative) 07/14/23 17:39 Ur Leukocyte Esterase Trace (Negative) H 07/14/23 17:39 Urine RBC 0-4 /hpf (0-2) H 07/14/23 17:39 Urine WBC 5-10 /hpf (0-5) H 07/14/23 17:39 Ur Squamous Epith Cells 5-10 /hpf (0-5) H 07/14/23 17:39 Amorphous Sediment Not Reportable 07/14/23 17:39 Urine Bacteria Trace /hpf (NONE) 07/14/23 17:39 Urine Mucus Trace /hpf 07/14/23 17:39 All radiology interpretation(s) finalized by discharge Discharge Plan Discharge Patient Disposition: Home Clinical Impression: UTI (urinary tract infection), , Right nephrolithiasis Condition: Stable Prescriptions: New cephalexin 500 mg capsule 500 mg PO TID 7 Days Qty: 21 0RF ondansetron 4 mg tablet,disintegrating 4 mg PO Q8H Qty: 14 0RF No Action Tylenol Ex Str Rapid Release 500 mg Tablet Discharge Orders: Discharge ED (Routine); Ordered 07/14/23 Ordered By: Dima Nelson Referrals: Randy Landis FNP [Primary Care Provider] - Discharge Diet: Advance as tolerated Discharge Activity: Resume usual activity Patient Instructions: Opioid Safety, Pain Management Activity Restrictions/Additional Instructions: As we discussed you likely have a very small kidney stone and do have some evidence of infection which we have initiated treatment for. Important you drink at least 2 quarts of water daily in addition to your other fluid intake. If you develop increasing pain, fever, inability to tolerate medications or intake return to the emergency department immediately. 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 Coding Level of Care Code ED Rn Disease Management for Nguyễn Weldon
[2023-07-14] MEDS: lactated ringers 1,000 ML 999 ML IV (16:45)
[2023-07-14] MEDS: ondansetron 2 mg/ML SDV 2 mL 4 MG IVP (16:46)
[2023-07-14 16:47] VITALS: BP 126/84; PULSE 76; RESP 19; O2SAT 95
[2023-07-14 17:03] LABS: Basophils % 0.2 %; Eosinophils % 0.1 %; Hematocrit 35.5 % (36-47); Lymphocytes # 1.3 10^3/uL (0.8-4.8); Mean Corpuscular HGB Conc 32.7 g/dL (30-55); Mean Corpuscular Hemoglobin 28.9 pg (27-33); Mean Corpuscular Volume 88.5 fl (85-98); Mean Platelet Volume 10.9 fL (7.4-10.4); Monocytes # 0.3 10^3/uL (0.2-0.9); Monocytes % 1.9 %; Neutrophils # 16.12 10^3/uL (1.8-7.7); Neutrophils % 90.1 %; Nucleated Red Blood Cells % 0 %; Platelet Count 356 10^3/cmm (157-399); Red Blood Count 4.01 10^6/uL (3.85-5.65); Red Cell Distribution Width 14.4 % (12.1-15.1); White Blood Count 17.88 10^3/uL (3.29-11.43)
[2023-07-14 17:22] LABS: Anion Gap 14.6 (5-19); Blood Urea Nitrogen 5 mg/dL (6-20); Carbon Dioxide 22 mmol/L (22-29); Chloride 104 mmol/L (98-107); Glomerular Filtration Rate 141.2 mL/min (90-130); Glucose 119 mg/dL (65-115); Osmolality Calculated 280 mOsm/kg (285-295); Potassium 4.6 mmol/L (3.5-5.1); Sodium 136 mmol/L (136-145)
[2023-07-14 18:02] LABS: Add Urine Culture? No; Add Urine Microscopic? YES; Bacteria Urine TRACE /hpf; Bilirubin Urine Neg (Negative); Blood Urine 2+ (Negative); Glucose Urine UA Norm (Normal); Ketones Urine 2+ (Negative); Leukocyte Esterase Urine Trace (Negative); Mucus Urine TRACE /hpf; Nitrate Urine Negative (Negative); Protein Urine Neg (Negative); RBC Urine 0-4 /hpf (0-2); Specific Gravity, Urine 1.005 (1.005-1.030); Urine Appearance Clear (CLEAR); Urine Color Yellow (Yellow); Urobilinogen Urine Norm (Negative); pH Urine 6.5 (5-7)
[2023-07-14] MEDS: sodium chloride 0.9% 1,000 ML 999 ML IV (18:15)
[2023-07-14] MEDS: ceFAZolin 1,000 MG in sodium chloride 0.9% (plus) 50 ML 100 MG IV (18:19)
== END 2023-07-14 19:13 | disposition home or self-care (01) ==
PROVIDERS: Emergency Provider Emergency Medicine; PCP Registered Nurse
DX: O23.42 Unspecified infection of urinary tract in pregnancy, second trimester (principal); N39.0 Urinary tract infection, site not specified; O26.892 Other specified pregnancy related conditions, second trimester; N13.2 Hydronephrosis with renal and ureteral calculous obstruction; Z3A.21 21 weeks gestation of pregnancy
CPT/HCPCS: 76770; 80048; 81001; 85025; 96365; 96375; 99284; J0690; J2405; J7030; J7120

== ENCOUNTER 2023-07-19 03:44 | Outpatient (CLI) | payer MEDICAID, SELFPAY ==
[2023-07-19] VITALS (12 sets, daily range): BP systolic 116–142; BP diastolic 65–82; PULSE 54–84; RESP 16; TEMP 35.8; O2SAT 100; BMI 30.7
--- NOTE | 2023-07-19 04:49 | US_ITS ---
WS: [id number] ULTRASOUND RENAL TECHNIQUE: Ultrasound examination of both kidneys. CLINICAL INFORMATION: right flank pain COMPARISON: Ultrasound 07/14/2023 FINDINGS: RIGHT: Right kidney is normal in size with mild RIGHT pelvocaliectasis unchanged since 07/14/2023 Echogenicity: Normal. Cortical thickness: 2.1 cm; Normal. Hydronephrosis: Mild perinephric fluid: None. Right kidney measures: 10.4 cm x 5.1 cm x 5.5 cm. LEFT: Left kidney is normal in size and appearance. Echogenicity: Normal. Cortical thickness: 1.8 cm; Normal. Hydronephrosis: None. Perinephric fluid: None. Left kidney measures: 9.8 cm x 5.2 cm x 5.1 cm. Normal visualized aorta. Normal bladder IMPRESSION: 1. Right kidney is normal in size with mild RIGHT hydronephrosis unchanged since 07/14/[address] stone protocol report for additional detail.
[2023-07-19 05:18] LABS: Add Urine Culture? No; Bacteria Urine 1+ /hpf; Bilirubin Urine Neg (Negative); Blood Urine Neg (Negative); Glucose Urine UA Norm (Normal); Ketones Urine 2+ (Negative); Leukocyte Esterase Urine 1+ (Negative); Mucus Urine 2+ /hpf; Nitrate Urine Negative (Negative); Protein Urine Neg (Negative); RBC Urine 0-4 /hpf (0-2); Urine Appearance Clear (CLEAR); Urine Color Yellow (Yellow); Urobilinogen Urine Neg (Negative); pH Urine 6 (5-7)
[2023-07-19 05:19] LABS: Amorphous Sediment Urine 1+ /hpf
[2023-07-19 05:22] LABS: Hematocrit 35.4 % (36-47); Mean Corpuscular HGB Conc 33.3 g/dL (30-55); Mean Corpuscular Hemoglobin 28.6 pg (27-33); Mean Corpuscular Volume 85.9 fl (85-98); Mean Platelet Volume 10.6 fL (7.4-10.4); Platelet Count 362 10^3/cmm (157-399); Red Blood Count 4.12 10^6/uL (3.85-5.65); Red Cell Distribution Width 14.3 % (12.1-15.1); White Blood Count 18.83 10^3/uL (3.29-11.43)
[2023-07-19] MEDS: morphine 4 mg/mL SDV 1 mL IVP (05:22)
[2023-07-19] MEDS: ondansetron 2 mg/ML SDV 2 mL 4 MG IVP (05:23)
[2023-07-19] MEDS: sodium chloride 0.9% 1,000 ML 999 ML IV (05:24)
[2023-07-19] MEDS: cefTRIAXone 1,000 MG in sodium chloride 0.9% (plus) 50 ML 100 MG IV (05:24)
[2023-07-19 05:41] LABS: Alanine Aminotransferase 18 U/L (0-33); Albumin Level 3.5 g/dL (3.5-5.2); Alkaline Phosphatase 115 U/L (35-105); Anion Gap 14.8 (5-19); Aspartate Amino Transferase 16 U/L (0-32); Blood Urea Nitrogen 5 mg/dL (6-20); Carbon Dioxide 22 mmol/L (22-29); Chloride 102 mmol/L (98-107); Globulin 3.5 g/dL (1.3-4.6); Glomerular Filtration Rate 63.5 mL/min (90-130); Glucose 108 mg/dL (65-115); Osmolality Calculated 278 mOsm/kg (285-295); Potassium 3.8 mmol/L (3.5-5.1); Sodium 135 mmol/L (136-145); Total Bilirubin 0.3 mg/dL (0.15-1.2)
[2023-07-19 05:42] LABS: Absolute Segmented Neutrophil 16.8 10/cmm (1.6-7.1); Eosinophils 0 %; Lymphocytes 7 %; Monocytes Absolute 0.8 10^3/cmm (0.1-0.6); Platelet Estimate Normal (Normal); Segmented Neutrophils 89 %; Total Cells Counted 100 (0-100)
== END 2023-07-19 06:40 | disposition home or self-care (01) ==
LOC: OPOB 03:46 → OBGYN 03:46
PROVIDERS: PCP Registered Nurse; Visit Provider Family Medicine
DX: O26.899 Other specified pregnancy related conditions, unspecified trimester (principal); Z3A.00 Weeks of gestation of pregnancy not specified; M54.9 Dorsalgia, unspecified; R10.9 Unspecified abdominal pain; R11.0 Nausea; N13.30 Unspecified hydronephrosis
CPT/HCPCS: 36415; 76770; 80053; 81001; 85007; 85027; 96374; 99211; J0696; J2270; J2405; J7030

== ENCOUNTER 2023-07-19 06:38 | Emergency (ER) | payer MEDICAID, SELFPAY ==
[2023-07-19 06:47] VITALS: BP 133/86; PULSE 71; RESP 22; TEMP 36.6; O2SAT 99; BMI 29.8
--- NOTE | 2023-07-19 06:54 | CT_ITS ---
WS: [id number] CT ABDOMEN AND PELVIS NONCONTRAST HISTORY: flank pain, 21 weeks . TECHNIQUE: Imaging performed through the abdomen and pelvis. Coronal and sagittal reformats are submi tted. All CT scans at [facility] use at least one of these dose optimization techniques: auto mated exposure control; mA and/or kV adjustment per patient size (includes targeted exams where dose is matched to clinical indication); or iterative reconstruction. DLP: 705.03 mGy.cm COMPARISON: None available. Lower thorax: Normal. Liver: Normal size liver. No mass or bile duct dilatation. Gallbladder: Prior cholecystectomy Pancreas: Normal size and attenuation. Normal pancreatic duct. No pancreatitis or mass. Spleen: Normal. Adrenal glands: Normal. No mass. Right kidney: Enlarged edematous RIGHT kidney. There is mild perinephric stranding and mild hydrouret eronephrosis. Renal obstruction secondary to a 5.5 mm calcification at the UV junction. This calcific ation is nearly extruded into the urinary bladder. The RIGHT ureter is distended. Left kidney: Normal size kidney with no mass or hydronephrosis. Aorta: Normal abdominal aorta, no aneurysm or atherosclerosis. No free fluid, intraperitoneal air or significant lymphadenopathy. GI tract: Normal noncontrast imaging of the stomach, small bowel and colon. No obstruction or wall th ickening. Normal appendix. Abdominal wall: Negative. No hernia. Pelvis: Gravid uterus. Osseous structures: Unremarkable. IMPRESSION: 1. Mild RIGHT hydroureteronephrosis secondary to a 5.5 mm calcification at the UV junction. This alex cification is nearly extruded into the urinary bladder. 2. No additional calcifications. 3. Prior cholecystectomy.
[2023-07-19 06:58] VITALS: BP 133/86; PULSE 69; RESP 18; O2SAT 100
[2023-07-19] MEDS: HYDROmorphone 1 mg/mL INJ 1 mL IVP (07:26)
[2023-07-19] MEDS: promethazine 25 mg/mL SDV 1 mL IM (07:27)
[2023-07-19 07:34] VITALS: BP 133/86; PULSE 85; RESP 16; O2SAT 98
--- NOTE | 2023-07-19 07:44 | ED_ITS ---
HPI - Abdominal Pain General: Chief Complaint: Abdominal Pain Stated Complaint: abdominal pain, nausea/vomiting Time Seen by Provider: 07/19/23 06:43 Source: patient Mode of arrival: wheelchair History of Present Illness: 32-year-old female presents to the ER with right-sided flank pain. She is approximately 22 weeks gestation. She is a SAB 1. She had seen Dr. Meneses and was evaluated in the OB department. She has a markedly elevated white count. UA shows ketones was contaminated at 5-10 whites and 5-10 squamous cells. She had some burning last week and is on some antibiotics. Dr. Meneses had called concerned about a kidney stone and wanted us to perform a CT to evaluate further. MD elicited complaint: flank pain (Right) Onset (ago): day(s) Pain Consistency: constant Associated Symptoms: Reports dysuria; Denies chills, fever(s), nausea and vomiting Review of Systems Const: Denies: fever(s) or chills Card: Denies: chest pain, edema, dyspnea on exertion or orthopnea Resp: Denies: dyspnea, productive cough or non-productive cough GI: Denies: abdominal pain, nausea or vomiting : Reports: flank pain and dysuria; Denies: difficulty voiding, urinary frequency or urinary urgency Skin/Breast: Denies: rash or pruritus PFSH ED PFSH: Family History Denies family history of Diabetes CAD (coronary artery disease) Chronic kidney disease (CKD) Lung disease Cancer Hypertension Social History Smoking and tobacco status: never smoked Alcohol intake: never Substance/Drug Use: never Adopted: No Caregiver/support person: No Lives independently: No Household members: spouse and children Marital status: service: No Current occupational status: unemployed Sexually active: Yes Do you think of yourself as: Straight/Heterosexual Current gender identity: Female Physical Exam Const: GENERAL APPEARANCE: cooperative and comfortable ORIENTATION/CONSCIOUSNESS: Yes awake, Yes oriented to person, Yes oriented to place and Yes oriented to time HENMT: COMMON NORMALS: normocephalic, atraumatic and hearing grossly normal bilaterally HEAD & SCALP: normocephalic and atraumatic Resp: COMMON NORMALS: normal respiratory effort, No retractions, No use of accessory muscles and clear to auscultation bilaterally AUSCULTATION: clear to auscultation bilaterally Cardio: COMMON NORMALS: regular rate, regular rhythm and No murmurs present (Cardio) RATE: regular rate RHYTHM: regular rhythm GI: COMMON NORMALS: Soft to palpation and No hepatosplenomegaly present AUSCULTATION: Yes normoactive bowel sounds PALPATION: Yes Soft to palpation, No Tenderness to palpation present (GI), No Guarding due to palpation present (GI) and Yes No hepatosplenomegaly present : BLADDER/KIDNEY EXAM: Yes CVA tenderness on the right Back/Pelvis: GENERAL BACK: Yes CVA tenderness Extremity: COMMON NORMALS: normal to inspection, capillary refill normal, no clubbing, cyanosis or edema, no calf tenderness and no pedal edema Neuro: SENSORIUM/ORIENTATION: Yes oriented to person, Yes oriented to place and Yes oriented to time Skin: COMMON NORMALS: no rashes or lesions noted GENERAL SKIN EXAM: no rashes or lesions noted Course Vital Signs: Vital signs: Vital Signs Temperature 97.9 F 07/19/23 06:47 Pulse Rate 77 07/19/23 08:03 Respiratory Rate 16 07/19/23 08:03 Blood Pressure 127/84 07/19/23 08:03 Pulse Oximetry 97 07/19/23 08:03 Oxygen Delivery Me thod Room Air 07/19/23 08:03 MDM - Abdominal Pain Medical Decision Making 5.5 mm stone at the verge of the UVJ about to extrude into the bladder. Pain controlled. Discussed Dr. Meneses who would evaluate the patient earlier and OB pain now controlled will discharge home on Percocet gave her Medical Records I reviewed the patient's medical records. Lab Data I reviewed the patient's lab results. All radiology interpretation(s) finalized by discharge Discharge Plan Discharge Patient Disposition: Home Clinical Impression: Right nephrolithiasis, Condition: Stable Prescriptions: New promethazine 25 mg tablet 25 mg PO Q6H PRN (Reason: nausea and vomiting) Qty: 20 0RF Percocet 5-325 mg tablet 1 tab PO Q4H PRN (Reason: pain) Qty: 20 0RF No Action cephalexin 500 mg capsule 500 mg PO TID 7 Days Qty: 21 0RF ondansetron 4 mg tablet,disintegrating 4 mg PO Q8H Qty: 14 0RF acetaminophen 325 mg Tablet 650 mg PO QID PRN (Reason: Pain) Discharge Orders: Discharge ED (Routine); Ordered 07/19/23 Ordered By: Steven Lei Referrals: Randy Landis, SHARIFA [Primary Care Provider] - Discharge Diet: Usual diet Discharge Activity: Increase activity as tolerated Patient Instructions: Opioid Safety, Pain Management Activity Restrictions/Additional Instructions: Follow-up with Dr. Meneses. If your pain is not well controlled you can return to the emergency room or contact Dr. Meneses. Stone on the CT is about to drop into your bladder. Coding Level of Care Code ED Certified Nuclear Medicine Technologist for Nguyễn Weldon
[2023-07-19] MEDS: sodium chloride 0.9% 1,000 ML 999 ML IV (08:00)
[2023-07-19 08:03] VITALS: BP 127/84; PULSE 77; RESP 16; O2SAT 97
== END 2023-07-19 10:18 | disposition home or self-care (01) ==
PROVIDERS: Emergency Provider Family Medicine; PCP Registered Nurse
DX: N20.0 Calculus of kidney (principal); O26.892 Other specified pregnancy related conditions, second trimester; Z3A.22 22 weeks gestation of pregnancy
CPT/HCPCS: 74176; 96372; 96374; 99285; J1170; J2550; J7030

== ENCOUNTER → 2023-07-25 10:16 | Outpatient (BNVA) | payer MEDICAID, SELFPAY | PROVIDERS: PCP Registered Nurse; Visit Provider Registered Nurse | DX: N39.0 Urinary tract infection, site not specified (principal); L72.3 Sebaceous cyst; N20.0 Calculus of kidney | CPT/HCPCS: 81000; 87086 ==

== ENCOUNTER 2023-08-20 02:03 | Outpatient (CLI) | payer MEDICAID, SELFPAY ==
[2023-08-20 02:14] VITALS: BMI 29.8
[2023-08-20 02:15] VITALS: RESP 16
[2023-08-20 02:25] LABS: Bilirubin Urine Neg (Negative); Blood Urine 2+ (Negative); Glucose Urine UA Norm (Normal); Ketones Urine 1+ (Negative); Leukocyte Esterase Urine Negative (Negative); Nitrate Urine Negative (Negative); Protein Urine 1+ (Negative); Specific Gravity, Urine 1.005 (1.005-1.030); Urine Appearance Clear (CLEAR); Urine Color Light yellow (Yellow); Urobilinogen Urine Neg (Negative); pH Urine 7 (5-7)
[2023-08-20 02:26] VITALS: BP 117/75; PULSE 83
[2023-08-20 02:27] LABS: Add Urine Culture? No; Bacteria Urine TRACE /hpf; Mucus Urine 1+ /hpf; RBC Urine 0-4 /hpf (0-2)
[2023-08-20 03:07] VITALS: RESP 16
[2023-08-20] MEDS: morphine 4 mg/mL SDV 1 mL IVP (03:07)
[2023-08-20] MEDS: sodium chloride 0.9% 1,000 ML 999 ML IV (03:07)
[2023-08-20 04:11] VITALS: RESP 19
[2023-08-20] MEDS: oxyCODONE-APAP 5-325 mg Tablet 1 TAB PO (04:11)
[2023-08-20 04:36] VITALS: BP 121/79; PULSE 65
[2023-08-20 05:05] VITALS: BP 109/68; PULSE 75
== END 2023-08-20 05:19 | disposition home or self-care (01) ==
LOC: OPOB 02:07 → OBGYN 02:10
PROVIDERS: PCP Registered Nurse; Visit Provider Family Medicine
DX: O26.899 Other specified pregnancy related conditions, unspecified trimester (principal); Z3A.00 Weeks of gestation of pregnancy not specified; R10.2 Pelvic and perineal pain; R60.0 Localized edema
CPT/HCPCS: 36415; 59025; 81001; 96374; 99211; J2270; J7030

== ENCOUNTER 2023-10-31 04:59 | Inpatient (IN) | payer MEDICAID, SELFPAY ==
[2023-10-30 22:43] VITALS: RESP 16; TEMP 36.6
[2023-10-30 22:46] VITALS: BMI 29.5
[2023-10-30] MEDS: lactated ringers 1,000 ML 999 ML IV (23:16)
[2023-10-30 23:17] LABS: Basophils # 0.1 10^3/uL (0.0-0.1); Basophils % 0.3 %; Eosinophils % 0.1 %; Hematocrit 33.9 % (36-47); Lymphocytes # 2.2 10^3/uL (0.8-4.8); Lymphocytes % 13.3 %; Mean Corpuscular HGB Conc 32.2 g/dL (30-55); Mean Corpuscular Hemoglobin 28.3 pg (27-33); Mean Corpuscular Volume 88.1 fl (85-98); Mean Platelet Volume 11.1 fL (7.4-10.4); Monocytes # 0.9 10^3/uL (0.2-0.9); Monocytes % 5.3 %; Neutrophils # 13.45 10^3/uL (1.8-7.7); Neutrophils % 80.4 %; Nucleated Red Blood Cells % 0 %; Platelet Count 369 10^3/cmm (157-399); Red Blood Count 3.85 10^6/uL (3.85-5.65); Red Cell Distribution Width 13.1 % (12.1-15.1); White Blood Count 16.73 10^3/uL (3.29-11.43)
[2023-10-31] VITALS (15 sets, daily range): BP systolic 105–124; BP diastolic 65–82; PULSE 69–92; RESP 16; TEMP 36.7–36.8; O2SAT 97–98
[2023-10-31] MEDS: dextrose 5%-lactated ringers 1,000 ML 125 ML IV (00:52)
[2023-10-31] MEDS: ROPivacaine syringe 100 MG/50 ML SYRINGE 10 MG EPIDURAL ×2 (00:52→04:37)
--- NOTE | 2023-10-31 00:55 | ANES.PREANE2 ---
Pre-Anesthetic Assessment Height/Weight: Height 1.68 m Preop Diagnosis: IUP Labor epidural Familial anesthetic complications: None Was Beta Inderjit taken within 24 hours: N/A Was Clonidine taken within 24 hours: N/A Social No alcohol and No tobacco Exam alert, oriented x 3, clear to auscultation bilaterally and regular rate & rhythm Airway Mallampati: Class II Dentition: full History/ROS No significant history except as noted Pulmonary None reported CV/HEM None reported None reported Hepatic None reported GI Gastroesophageal Reflux Disease Metabolic None reported Musc/skel None reported Neuropsych None reported Anesthetic Plan ASA status: 2 Anesthesia: Anesthesia Evaluation and Regional (specify below) (epidural) Risk of > 500 ml blood loss (7ml/kg in children): No Medications/Allergies Home Medications Medication Instructions Recorded Confirmed Last Taken Type ondansetron 4 mg disintegrating 4 mg PO Q8H nausea #14 tabs 07/14/23 08/27/23 07/19/23 Rx tablet acetaminophen 325 mg tablet 650 mg PO QID PRN Pain 07/19/23 08/27/23 07/19/23 History oxycodone-acetaminophen 5 mg-325 1 tab PO Q4H PRN pain #20 tabs 07/19/23 08/27/23 Unknown Rx mg tablet (Percocet) promethazine 25 mg tablet 25 mg PO Q6H PRN nausea and 07/19/23 08/27/23 Unknown Rx vomiting #20 tabs Allergies Allergy/AdvReac Type Severity Reaction Status Date / Time Antihistamines - Alkylamine Allergy Unknown Verified 08/27/23 08:49 tuberculin,PPD,multi-puncture Allergy Unknown Verified 08/27/23 08:49 Current Medications Generic Name Dose Route Start Last Admin Trade Name Freq PRN Reason Stop Dose Admin Lactated Ringer's 1,000 mls @ 999 mls/hr 10/30/23 23:07 10/30/23 23:16 Lactated Ringers IV 999 mls/hr .Q1H1M PRN Administration See label comments Ropivacaine 100 mg in 50 mls @ 10 mls/hr 10/30/23 23:15 10/31/23 00:52 Naropin Syringe EPIDURAL 10 mls/hr .Q5H CRISTIN Administration Dextrose/Lactated Ringer's 1,000 mls @ 125 mls/hr 10/30/23 23:15 10/31/23 00:52 Dextrose 5%-Lactated Ringers IV 125 mls/hr .Q8H CRISTIN Administration PFSH Anesthesia Family History Denies family history of Diabetes CAD (coronary artery disease) Chronic kidney disease (CKD) Lung disease Cancer Hypertension Social History Smoking and tobacco/nicotine status: never used tobacco/nicotine Alcohol intake: never Substance/Drug Use: never Adopted: No Caregiver/support person: No Lives independently: No Household members: spouse and children Marital status: service: No Current occupational status: unemployed Sexually active: Yes Do you think of yourself as: Straight/Heterosexual Current gender identity: Female Data Anesthesia 10/30/23 22:51 Short CBC 10/30/23 Range/Units 22:51 WBC 16.73 H (3.29-11.43) 10^3/uL Hgb 10.90 L (11.27-16.99) g/dL Hct 33.9 L (36-47) % MCV 88.1 (85-98) fl Plt Count 369 (157-399) 10^3/cmm Neut % (Auto) 80.4 % Neut # (Auto) 13.45 H (1.8-7.7) 10^3/uL Cardiac Studies: No Data to Display Anesthesia Procedures Date of Procedure 10/31/23 Epidural Time Out Performed: Yes Consents Signed: Procedure Consent Consent: requested by attending/covering physician, from patient, risks and benefits reviewed and patient agrees to proceed Lumbar Level: L3-L4 Epidural position: sitting Epidural procedure: sterile prep of area, 1% lidocaine to numb the area, 18 g needle, negative for paresthesia passed, neg for paresthesia, test dose given, 1.5% xylocaine 1:200k epi, 0.2% Ropivacaine bolus ml (5), placed PCEA, no systemic response, sterile dressing applied, L.U.D. no apparent complications and 0.2% Ropiavacaine @ mls/hr (10) Additional Comments: YOVANY 6 cm, catheter easily threaded to 5cm in the space. 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 RN at bedside.
[2023-10-31] MEDS: lactated ringers 1,000 ML 999 ML IV (01:00)
[2023-10-31] MEDS: calcium carbonate 500 mg Chew Tablet 1000 MG PO (01:26)
[2023-10-31] MEDS: oxytocin 30 UNIT/500 ML BAG 600 UNIT IV (05:53)
--- NOTE | 2023-10-31 07:18 | PM.OPHPUD ---
Labor & Delivery H&P Update Date of Procedure: October 31, 2023 Date H&P Performed: 10/30/23 Changes to previous documentation: The patient is an active labor with cervical change Admission Diagnosis: 32-year-old 4 para 2-0-1-2 Preop diagnosis: IUP Planned procedure: Vaginal delivery Other information: The patient presented to the hospital in active labor. Her has been otherwise unremarkable. She began having labor pains a few hours prior to coming to the hospital. Her labs are relatively unremarkable. Her blood type is O+. Her antibody screen was negative. Her glucose screen was 136. She is rubella immune. She is GBS negative. Her infectious disease profile is within normal limits. Her drug screen was negative. Related Problem List Diagnoses (1) 37 weeks gestation of : A&P Assessment and plan (1) 37 weeks gestation of : I anticipate routine labor and delivery. Status: Acute
--- NOTE | 2023-10-31 07:21 | PM.DELIVERY ---
Delivery Note: Date of delivery: October 31, 2023 Pre-delivery diagnoses: 32-year-old 4 para 2-0-1-2 at 37 weeks estimated gestational age in active labor Post-delivery diagnoses: Status post spontaneous vaginal delivery Procedure: Spontaneous vaginal delivery Delivering Physician: Russ Meneses Estimated blood loss (mL): 100 Pre-Delivery Course: The patient presented to the hospital in active labor. An epidural was placed. She progressed to complete. An amniotomy was performed. Delivery: DELIVERY: The patient progressed to complete without difficulty. She delivered a female with a weight of 5 pounds 2 ounces with Apgars of 9, 9. The baby was delivered from the AYESHA position and placed on the mother's abdomen. The cord was then clamped and cut. There was no nuchal cord. There was no meconium. The placenta and 3 vessel cord were delivered intact shortly thereafter. The perineum and vaginal vault were carefully examined. A first-degree laceration was noted on the patient's right vaginal wall extending onto her labia minora no repair was required.. Both the mother and the baby were in stable condition. A&P Assessment and plan (1) 37 weeks gestation of : (2) Normal vaginal delivery: I anticipate routine care. Coding Level of Care Code Acute Code for Chg Fwd Diagnoses 37 weeks gestation of Z3A.37 Normal vaginal delivery O80
[2023-10-31] MEDS: prenatal vitamin Capsule 1 CAP PO (08:25)
[2023-10-31] MEDS: ibuprofen 800 mg tablet PO ×3 (08:25→20:57)
[2023-10-31] MEDS: docusate sodium 100 mg Capsule PO (08:25)
[2023-10-31] MEDS: benzocaine-menthol 78 gm Canister 1 SPRAY TOPICAL (08:30)
[2023-10-31] MEDS: lanolin oint 7 gm 1 APPLIC TOPICAL (08:30)
--- NOTE | 2023-10-31 16:41 | PM.OBGYHP ---
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 Her was unremarkable. Her delivery was also unremarkable. Earlier in her she had discussed an interest in having a tubal ligation performed . After discussing the risks and alternatives, she signed the requisite Medicaid sheet over a month ago. Today we once again reviewed the alternatives, as well as the potential risks including the risks of bleeding, infection, and damage to intra-abdominal organs. We discussed the risk of becoming again despite a successful tubal ligation. We also discussed increased risk of an ectopic in the future as well. She and her had no further questions and she wished to proceed. 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 PFSH: Family History Denies family history of Diabetes CAD (coronary artery disease) Chronic kidney disease (CKD) Lung disease Cancer Hypertension Social History Smoking and tobacco/nicotine status: never used tobacco/nicotine Alcohol intake: never Substance/Drug Use: never Adopted: No Caregiver/support person: No Lives independently: No Household members: spouse and children Marital status: service: No Current occupational status: unemployed Sexually active: Yes Do you think of yourself as: Straight/Heterosexual Current gender identity: Female Personal Safety: Do you feel safe at home: Yes Victim of physical abuse: No Victim of emotional abuse: No Victim of sexual abuse: No Would you like help information on resources?: No Vitals/I&O/Wt Last Vital Signs Temp 98.0 F 10/31/23 15:45 Pulse 70 10/31/23 15:45 Resp 16 10/30/23 22:43 BP 124/80 10/31/23 15:45 O2 Del Method Room Air 10/30/23 22:46 10/31/23 10/31/23 10/31/23 06:59 14:59 22:59 Intake Total 1440 / 1440 Output Total 600 / 600 Balance 840 / 840 Weight last 48 hrs Weight 183 lb Physical Exam Narrative: The patient is alert. She appears comfortable. Her heart has a regular rate and rhythm with no murmurs appreciated. Lungs are clear to auscultation bilaterally. Her fundus is firm and below the umbilicus. Urinary Catheter Management: Seg[place]: Cath Placed During This Visit: yes, but has since been removed by the nurse Reason for Continuing Indwelling Catheter: Decision to DC Catheter Urinary Catheter Date of Insertion: 10/31/23 Urinary Catheter Time of Insertion: 00:20 Date Urinary Catheter Removed: 10/31/23 Time Urinary Catheter Discontinued: 05:42 Data 10/30/23 22:51 Results Labs OB ([facility]): Obstetrics US 08/12/23 Blood Type O Positive 10/30/23 Antibody Screen Negative 10/30/23 Hct 33.9 % (36-47) L 10/30/23 Hgb 10.90 g/dL (11.27-16.99) L 10/30/23 Rho(D) Type Rh positive 10/30/23 Plt Count 369 10^3/cmm (157-399) 10/30/23 Ser , Semi-Qnt 504850.00 mIU/mL 04/27/23 HCG, Qual Positive (Negative) H 03/19/23 Micro Urine Specimen 07/25/23 A&P Assessment and plan (1) 37 weeks gestation of : (2) Normal vaginal delivery: (3) Sterilization consult: We will proceed with a tubal ligation tomorrow morning at 7 AM. She will be n.p.o. after midnight. Attestations Medical Necessity Statement*: Anticipated discharge home tomorrow late morning or afternoon after appropriate postoperative recovery. Coding Level of Care Code Acute Code for Chg Fwd Diagnoses 37 weeks gestation of Z3A.37 Normal vaginal delivery O80 Sterilization consult Z30.09
[2023-10-31 19:31] LABS: Hematocrit 30.7 % (36-47); Mean Corpuscular HGB Conc 32.6 g/dL (30-55); Mean Corpuscular Hemoglobin 29.1 pg (27-33); Mean Corpuscular Volume 89.2 fl (85-98); Mean Platelet Volume 11.5 fL (7.4-10.4); Platelet Count 328 10^3/cmm (157-399); Red Blood Count 3.44 10^6/uL (3.85-5.65); Red Cell Distribution Width 13.1 % (12.1-15.1); White Blood Count 17.43 10^3/uL (3.29-11.43)
[2023-11-01] VITALS (15 sets, daily range): BP systolic 106–125; BP diastolic 68–88; PULSE 54–80; RESP 16; TEMP 36.6–36.9; O2SAT 94–100
[2023-11-01] MEDS: lactated ringers 1,000 ML 999 ML IV (06:08)
[2023-11-01] MEDS: citric acid-sodium citrate 30 mL UDC PO (06:49)
[2023-11-01] MEDS: famotidine 20 mg/2 mL INJ IVP (06:49)
[2023-11-01] MEDS: metoclopramide 5 mg/mL SDV 2 mL 10 MG IVP (06:50)
[2023-11-01] MEDS: BUPivacaine 0.5% INJ 10 mL INJECTION (07:10)
--- NOTE | 2023-11-01 07:22 | P.ANESASSM_ITS ---
Pre-Anesthetic Assessment Height/Weight: Height 1.68 m Weight 83.007 kg Temp Pulse Resp BP Pulse Ox O2 Del Method 98.5 F 69 16 108/68 97 Room Air 11/01/23 04:45 11/01/23 04:45 11/01/23 04:45 11/01/23 04:45 11/01/23 04:45 11/01/23 04:45 Preop Diagnosis: desires sterilization Operation Date: 11/01/23 07:00 Proposed Procedures p Post Bilateral Tubal Ligation(Not Applicable) - Russ Meneses MD Was Beta Inderjit taken within 24 hours: N/A Was Clonidine taken within 24 hours: N/A Social No alcohol and No tobacco Exam alert and oriented x 3 Airway Submandibular: within normal limits Cervical ROM: within normal limits Mallampati: Class II Dentition: full History/ROS No significant history except as noted Pulmonary None reported CV/HEM None reported None reported Hepatic None reported GI Gastroesophageal Reflux Disease Metabolic None reported Musc/skel None reported Neuropsych None reported Anesthetic Plan ASA status: 2 Anesthesia: General Risk of > 500 ml blood loss (7ml/kg in children): No Medications/Allergies Allergies Allergy/AdvReac Type Severity Reaction Status Date / Time Antihistamines - Alkylamine Allergy Unknown Verified 08/27/23 08:49 tuberculin,PPD,multi-puncture Allergy Unknown Verified 08/27/23 08:49 Current Medications Generic Name Dose Route Start Last Admin Trade Name Freq PRN Reason Stop Dose Admin Benzocaine 1 spray 10/31/23 07:27 10/31/23 08:30 Benzocaine-Menthol 78 Gm Canister TOPICAL 1 spray PRN PRN Administration PAIN Docusate Sodium 100 mg 10/31/23 09:00 10/31/23 19:51 Docusate Sodium 100 Mg Capsule PO Not Given BID CRISTIN Ibuprofen 800 mg 10/31/23 09:00 10/31/23 20:57 Ibuprofen 800 Mg Tablet PO 800 mg TID CRISTIN Administration Lanolin 1 applic 10/31/23 07:27 10/31/23 08:30 Lanolin Oint 7 Gm TOPICAL 1 applic PRN PRN Administration DRYNESS Multivit/Folic Acid/Iron 1 cap 10/31/23 09:00 10/31/23 08:25 Vitamin Capsule PO 1 cap DAILY CRISTIN Administration PFS Anesthesia Family History Denies family history of Diabetes CAD (coronary artery disease) Chronic kidney disease (CKD) Lung disease Cancer Hypertension Social History Smoking and tobacco/nicotine status: never used tobacco/nicotine Alcohol intake: never Substance/Drug Use: never Adopted: No Caregiver/support person: No Lives independently: No Household members: spouse and children Marital status: service: No Current occupational status: unemployed Sexually active: Yes Do you think of yourself as: Straight/Heterosexual Current gender identity: Female Female Reproductive History : 4 Data Anesthesia 10/31/23 18:20 Short CBC 10/30/23 10/31/23 Range/Units 22:51 18:20 WBC 16.73 H 17.43 H (3.29-11.43) 10^3/uL Hgb 10.90 L 10.00 L (11.27-16.99) g/dL Hct 33.9 L 30.7 L (36-47) % MCV 88.1 89.2 (85-98) fl Plt Count 369 328 (157-399) 10^3/cmm Neut % (Auto) 80.4 % Neut # (Auto) 13.45 H (1.8-7.7) 10^3/uL Blood Bank 10/30/23 22:51 Blood Type O Positive Rho(D) Type Rh positive Antibody Screen Negative Cardiac Studies: 2 No Data to Display
--- NOTE | 2023-11-01 07:53 | PM.OP ---
Operative Report Date of procedure: November 01, 2023 Pre-op diagnosis: 32-year-old multigravida female desiring sterilization Post-op diagnosis: Status post minilaparotomy tubal ligation Procedure done: Minilaparotomy tubal ligation using a modified Aundrea technique Specimens removed/disposition: Bilateral fallopian tube segments of the right segment being tagged Pathology: Bilateral fallopian tube segments with the right segment being tagged Surgeon: Russ Meneses MD Estimated blood loss (mL): 10 Complications: None Procedure: The patient was brought back to the operating room where anesthesia was found to be adequate. 10 mL of 0.5% bupivacaine was then used to pre-anesthetize the area just inferior to the umbilicus. A #15 blade was then used to make a 3 cm transverse incision just inferior to the umbilicus. I then dissected down to the underlying subcutaneous tissue until arriving at the fascia. The fascia was then nicked with the scalpel. The fascial incision was extended manually. I identified the fundus of the uterus and followed it to the left fallopian tube. The fallopian tube was then followed to the fimbria. The tube was then ligated, cut, and cauterized in a modified Aundrea fashion using 0 chromic. The right fallopian tube was then identified and followed through to the fimbria. It was ligated, cut, and cauterized in similar fashion. The right fallopian tube was tagged. Both fallopian tubes had excellent hemostasis. The fascia was reapproximated using 0 Vicryl in running stitch. The subcutaneous tissue was carefully examined and no further bleeding was noted. The skin was then reapproximated using 4-0 Vicryl in a running subcuticular stitch. A sterile dressing was placed. All counts were correct x2. The patient was moved to the recovery room in stable condition.
--- NOTE | 2023-11-01 07:55 | PM.OBGYDC ---
Discharge Providers LOGISTICS VICE PRESIDENT Date of Admission: 10/31/23 04:59 Date of Discharge: 11/01/23 Attending Provider at Admission: Russ Meneses MD Attending Provider at Discharge: Russ Meneses MD Primary Care Provider: SHARIFA Wolfe Diagnoses at Discharge Discharge Diagnosis (1) 37 weeks gestation of : Status: Acute (2) Normal vaginal delivery: Status: Acute (3) Sterilization consult: Status: Acute Reason for Visit Reason for Visit: contractions Hospital Course Hospital Course The patient presented to the hospital in active labor and had an unremarkable vaginal delivery of a healthy female infant. Her course was unremarkable. Her bleeding was within normal limits. Her pain was well-controlled. She desired a tubal ligation that was performed on the first day. Information Peripartum Data: Delivery Method: Vaginal Physical Exam Narrative: The patient is alert. She appears comfortable. Her heart has a regular rate and rhythm with no murmurs appreciated. Lungs are clear to auscultation bilaterally. Her fundus is firm and below the umbilicus. Urinary Catheter Management: [place]: Cath Placed During This Visit: yes, but has since been removed by the nurse Reason for Continuing Indwelling Catheter: Decision to DC Catheter Urinary Catheter Date of Insertion: 10/31/23 Urinary Catheter Time of Insertion: 00:20 Date Urinary Catheter Removed: 10/31/23 Time Urinary Catheter Discontinued: 05:42 Discharge Data Studies Completed and Pending Laboratory Results WBC 17.43 10^3/uL (3.29-11.43) H 10/31/23 18:20 RBC 3.44 10^6/uL (3.85-5.65) L 10/31/23 18:20 Hgb 10.00 g/dL (11.27-16.99) L 10/31/23 18:20 Hct 30.7 % (36-47) L 10/31/23 18:20 MCV 89.2 fl (85-98) 10/31/23 18:20 MCH 29.1 pg (27-33) 10/31/23 18:20 MCHC 32.6 g/dL (30-55) 10/31/23 18:20 RDW 13.1 % (12.1-15.1) 10/31/23 18:20 Plt Count 328 10^3/cmm (157-399) 10/31/23 18:20 MPV 11.5 fL (7.4-10.4) H 10/31/23 18:20 Neut % (Auto) 80.4 % 10/30/23 22:51 Lymph % (Auto) 13.3 % 10/30/23 22:51 Stearns % (Auto) 5.3 % 10/30/23 22:51 Eos % (Auto) 0.1 % 10/30/23 22:51 Baso % (Auto) 0.3 % 10/30/23 22:51 Neut # (Auto) 13.45 10^3/uL (1.8-7.7) H 10/30/23 22:51 Lymph # (Auto) 2.2 10^3/uL (0.8-4.8) 10/30/23 22:51 Stearns # (Auto) 0.9 10^3/uL (0.2-0.9) 10/30/23 22:51 Eos # (Auto) 0.0 10^3/uL (0.0-0.8) 10/30/23 22:51 Baso # (Auto) 0.1 10^3/uL (0.0-0.1) 10/30/23 22:51 Nucleated RBC % (auto) 0 % 10/30/23 22:51 Nucleated RBCs # 0.0 /100WBC 10/30/23 22:51 Blood Type O Positive 10/30/23 22:51 Rho(D) Type Rh positive 10/30/23 22:51 Antibody Screen Negative 10/30/23 22:51 Vitals Last Vital Signs Temp 98.5 F 11/01/23 04:45 Pulse 69 11/01/23 04:45 Resp 16 11/01/23 04:45 BP 108/68 11/01/23 04:45 Pulse Ox 97 11/01/23 04:45 O2 Del Method Room Air 11/01/23 04:45 Results Labs OB ([facility]): Obstetrics US 08/12/23 Blood Type O Positive 10/30/23 Antibody Screen Negative 10/30/23 Hct 30.7 % (36-47) L 10/31/23 Hgb 10.00 g/dL (11.27-16.99) L 10/31/23 Rho(D) Type Rh positive 10/30/23 Plt Count 328 10^3/cmm (157-399) 10/31/23 Ser , Semi-Qnt 871849.00 mIU/mL 04/27/23 HCG, Qual Positive (Negative) H 03/19/23 Micro Urine Specimen 07/25/23 Discharge Plan Discharge Patient Disposition: Home Condition: Stable Prescriptions: New ibuprofen 800 mg Tablet 800 mg PO TID Qty: 45 0RF hydrocodone-acetaminophen 5-325 mg Tablet 1 tab PO Q6H PRN (Reason: Moderate To Severe Pain) Qty: 10 0RF -U 106.5-1 mg Capsule 1 cap PO DAILY Qty: 90 3RF Discharge Orders: Discharge Order (Routine); Ordered 11/01/23 Ordered By: Russ Meneses Referrals: Russ Meneses MD [Physician] - 4-7 days (Please set up 6-week visit in addition. Thank you) Discharge Diet: Usual diet Discharge Activity: Limit activity as instructed Patient Instructions: Opioid Safety Discharge Attestations LOGISTICS VICE PRESIDENT Time Spent in Discharge Care*: less than 30 min Coding Level of Care Code Acute Code for Chg Fwd Diagnoses 37 weeks gestation of Z3A.37 Normal vaginal delivery O80 Sterilization consult Z30.09
[2023-11-01] MEDS: docusate sodium 100 mg Capsule PO (09:44)
[2023-11-01] MEDS: prenatal vitamin Capsule 1 CAP PO (09:44)
[2023-11-01] MEDS: HYDROcodone-acetaminophen 5-325 mg Tablet PO (13:20)
--- NOTE | 2023-11-01 14:05 | ANE.PACU2 ---
Inpatient post-anesthesia follow up: Airway intact: Yes Vital signs: Temperature 97.9 F Pulse Rate 66 Respiratory Rate 16 Blood Pressure 112/68 Pulse Oximetry 96 Oxygen Delivery Me thod Non-Rebreather Oxygen Flow Rate 2 Fraction of Inspir ed Oxygen Hydration adequate: Yes Nausea and vomiting: No Pain level: 1 Mental status: Baseline Epidural Start/End: Epidural Start Date: 10/31/23 Epidural Start Time: 00:20 Epidural End Date: 10/31/23 Epidural End Time: 07:21
[2023-11-01] MEDS: ibuprofen 800 mg tablet PO (15:47)
== END 2023-11-01 17:33 | disposition home or self-care (01) | DRG 798 ==
LOC: OPOB 05:00 → OBGYN 05:00
PROVIDERS: Admitting Provider Family Medicine; PCP Registered Nurse; Visit Provider Family Medicine
PROC: 0UB70ZZ Excision of Bilateral Fallopian Tubes, Open Approach (ICD-10-PCS; CPT 58605; principal; 2023-11-01 07:00)
DX: O70.0 First degree perineal laceration during delivery (principal); Z37.0 Single live birth; Z30.2 Encounter for sterilization; Z3A.37 37 weeks gestation of pregnancy
CPT/HCPCS: 36415; 51702; 58605; 59025; 59409; 85025; 85027; 86850; 86900; 88302; 96374; 99211; J1100; J1885; J2405; J2590; J2704; J2710; J2765; J2795; J3010; J3490; J7120; J7121

== ENCOUNTER → 2024-06-02 08:36 | Outpatient (BNVA) | payer MEDICAID, SELFPAY | PROVIDERS: PCP Registered Nurse; Visit Provider Registered Nurse | DX: F32.9 Major depressive disorder, single episode, unspecified (principal) | CPT/HCPCS: 80053; 82306; 82607; 84443; 85025 ==